=== PATIENT | female | born 2000 | race Caucasian/White ===

== ENCOUNTER → 2018-08-16 18:10 | Outpatient (CLI) | payer OTHER, SELFPAY ==
[2018-08-16 21:41] LABS: Chlamydia Trachomatis by PCR Negative (Negative); Neisserai gonorrhoeae by PCR Negative (Negative); Probe Check PASS; Sample Adequacy Control PASS; Specimen Processing Control PASS
--- OUTSIDE RECORDS SUMMARY | 2018-11-18 06:04 | XMS RPT_ITS ---
:2000 Author Organization OHIP Care Team Providers Name Role Phone Juanjose Cash Attending Unavailable Juanjose Cash Referring Unavailable PROBLEMS PROBLEMS DATE TYPE CONDITION / CODE ATTENDING STATUS SOURCE 08/17/2018 Unknown Z11.3 - Encounter Juanjose Cash Active Steve for screening for Community infections with a Hospital predominantly Repository sexual mode of transmission / Z11.3(ICD-10) PROCEDURES PROCEDURES No Procedure Records FoundRESULTS RESULTS CT/NG [facility] BY PCR Collected: 08/16/2018 Status: F Source: [place] 4:50 PM [facility] REPOSITORY TYPE CODE TESTS RESULT OUT OF RANGE REFERENCE UNITS LAB L8200.2100 Negative Normal Chlam Negative Trac PCR LAB L8200.2200 Negative Normal NG by Negative PCR Performed By: #### L8200.2000 #### [facility] [address] [place], [address] Observed: 08/16/2018 Status: F Source: [place] CULTURE, URINE 4:50 PM [facility] REPOSITORY Urine Culture ORGANISM 1: Mixed Gram Positive Organisms Maxwell Count 25,000-50,000 MIX CULTURE Mixed contaminants. Submit a new specimen if indicated. Performed By: #### M100.0650 #### [facility] [address] [facility] [place], [address] ALLERGIES ALLERGIES No Allergies Records FoundENCOUNTERS ENCOUNTERS ADMIT/DISCHARGE ACCOUNT ADMITTING ENCOUNTER LOCATION SOURCE NUMBER CLASS 08/16/[id number] [facility] ing:LABSPEC Repository PAYERS PAYERS ENCOUNTER GUARANTOR PAYER SUBSCRIBER SOURCE 08/16/2018summer R Primary SARAH BETH LOODOB: Steve [id number] Insurance:MEDICAL [id number] [address]Ygs: ([phone]) Number: Repository [phone] ) [id number] Date:[id number], [place] [address]ES: 08/16/2018 Secondary NOT GIVENUNK [place] Insurance:SELF PAY [facility] Number: Effective Repository Date:2018-08-16
== END ==
PROVIDERS: Referring Provider Obstetrics & Gynecology; Visit Provider Obstetrics & Gynecology
DX: Z11.3 Encounter for screening for infections with a predominantly sexual mode of transmission (principal)
CPT/HCPCS: 87086; 87088; 87491; 87591